=== PATIENT | female | born 1970 | race Caucasian/White ===

== ENCOUNTER 2020-11-07 12:21 | Emergency (ER) | payer OTHER | END 2020-11-07 12:47 | disposition home or self-care (01) | LOC: JVIRT 12:21 | DX: Z11.59 Encounter for screening for other viral diseases (principal) | CPT/HCPCS: C9803; G2012-GT; U0003 ==

== ENCOUNTER 2022-09-10 09:46 | Emergency (ER) | payer OTHER ==
[2022-09-10 10:10] VITALS: BP 118/70; PULSE 80; RESP 18; TEMP 98.3; BMI 19.1
== END 2022-09-10 11:18 | disposition home or self-care (01) ==
LOC: JERFT 09:46
DX: S91.011A Laceration without foreign body, right ankle, initial encounter (principal); W26.0XXA Contact with knife, initial encounter
CPT/HCPCS: 99281-25